=== PATIENT | female | born 1965 | race Caucasian/White ===

== ENCOUNTER 2022-01-22 21:19 | Emergency (ER) | payer BC ==
[2022-01-22] MEDS ORDERED: Loperamide 2 MG Cap PO ONE (21:41)
[2022-01-22] MEDS ORDERED: Sodium Chloride 0.9% 10 ML Syringe FLUSH PRN (21:41)
[2022-01-22] MEDS ORDERED: Sodium Chloride 0.9% 1,000 ML IV ONE (21:46)
[2022-01-22 22:11] LABS: ESTIMATED GFR 86 mL/min (>60)
[2022-01-22 22:21] LABS: CORONAVIRUS COVID-19 NAA NEGATIVE (NEGATIVE)
[2022-01-23] MEDS ORDERED: Ondansetron 4 MG/2 ML SDV IVPUSH ONE (00:01)
== END 2022-01-23 00:21 | disposition home or self-care (01) ==
LOC: JD.ED 21:19
DX: R55 Syncope and collapse (principal); R19.7 Diarrhea, unspecified; E11.9 Type 2 diabetes mellitus without complications; Z86.16 Personal history of COVID-19; Z88.5 Allergy status to narcotic agent; Z79.84 Long term (current) use of oral hypoglycemic drugs; Z79.899 Other long term (current) drug therapy; Z20.822 Contact with and (suspected) exposure to COVID-19
CPT/HCPCS: 0240U; 36415; 80053; 83735; 85025; 86140; 96361; 96374; 99284; A9270; J2405; J3490; J7030

== ENCOUNTER 2023-03-26 06:00 | Day surgery (SDC) | payer BC ==
[~2023-03-26 06:00] MED LIST: Lactated Ringers 1,000 ML IV SCH; Sodium Chloride 0.9% 10 ML Syringe FLUSH PRN; Sodium Chloride 0.9% 10 ML Syringe FLUSH SCH
[2023-03-26] MEDS ORDERED: Bupivacaine 0.25% 10 ML SDV ONE (06:40)
[2023-03-26] MEDS ORDERED: Lidocaine 1% 10 ML MDV ONE (06:40)
[2023-03-26] MEDS ORDERED: Lidocaine 1% 6 ML ONE (06:43)
[2023-03-26] MEDS ORDERED: Propofol 200 MG/20 ML SDV ONE ×2 (06:43→06:45)
[2023-03-26] MEDS ORDERED: fentaNYL 100 MCG/2 ML SDV ONE (06:43)
[2023-03-26] MEDS ORDERED: Midazolam 1 MG/ML 2 ML SDV ONE (06:44)
[2023-03-26] MEDS ORDERED: Ondansetron 4 MG/2 ML SDV ONE (07:19)
== END 2023-03-26 08:25 | disposition home or self-care (01) ==
LOC: JD.SDS 06:00
PROVIDERS: ATTEND Orthopaedic Surgery
DX: M65.322 Trigger finger, left index finger (principal); M65.842 Other synovitis and tenosynovitis, left hand; E11.9 Type 2 diabetes mellitus without complications; F41.9 Anxiety disorder, unspecified; F32.A Depression, unspecified; E78.00 Pure hypercholesterolemia, unspecified; Z87.891 Personal history of nicotine dependence; Z79.84 Long term (current) use of oral hypoglycemic drugs; Z79.899 Other long term (current) drug therapy
CPT/HCPCS: 26055; J2250; J2405; J2704; J3010; J3490; J7120; 01810

== ENCOUNTER 2023-05-23 08:15 | Day surgery (SDC) | payer BC ==
[~2023-05-23 08:15] MED LIST changes: -Lactated Ringers 1,000 ML IV SCH
[2023-05-23] MEDS: Lactated Ringers 1,000 ML IV SCH (08:53)
[2023-05-23] MEDS ORDERED: fentaNYL 100 MCG/2 ML SDV ONE (09:13)
[2023-05-23] MEDS ORDERED: Midazolam 1 MG/ML 2 ML SDV ONE (09:13)
[2023-05-23] MEDS ORDERED: Propofol 200 MG/20 ML SDV ONE ×2 (09:13→10:30)
[2023-05-23] MEDS ORDERED: Lidocaine 1% 6 ML ONE (09:19)
[2023-05-23] MEDS ORDERED: Ondansetron 4 MG/2 ML SDV ONE (10:23)
[2023-05-23] MEDS: Bupivacaine 0.25% 10 ML SDV ONE (10:25)
[2023-05-23] MEDS: Lidocaine 1% 10 ML MDV ONE (10:25)
[2023-05-23] MEDS ORDERED: Lactated Ringers 1,000 ML ONE (10:31)
== END 2023-05-23 11:35 | disposition home or self-care (01) ==
LOC: JD.SDS 08:15
PROVIDERS: ATTEND Orthopaedic Surgery
DX: M65.842 Other synovitis and tenosynovitis, left hand (principal); E11.9 Type 2 diabetes mellitus without complications; F41.9 Anxiety disorder, unspecified; E78.00 Pure hypercholesterolemia, unspecified; E66.9 Obesity, unspecified; Z68.33 Body mass index [BMI] 33.0-33.9, adult; F17.290 Nicotine dependence, other tobacco product, uncomplicated; Z79.899 Other long term (current) drug therapy; Z88.5 Allergy status to narcotic agent
CPT/HCPCS: 26055; J2250; J2405; J2704; J3010; J3490; J7120; 01810

== ENCOUNTER 2024-07-24 06:43 | Day surgery (SDC) | payer BC ==
[2024-07-24] MEDS ORDERED: Propofol 200 MG/20 ML SDV ONE (06:53)
[2024-07-24] MEDS ORDERED: Lidocaine 1% 4 ML ONE (06:53)
[2024-07-24] MEDS: Lactated Ringers 1,000 ML IV SCH (07:05)
[2024-07-24] MEDS ORDERED: Sodium Chloride 0.9% 10 ML Syringe FLUSH PRN (08:00)
[2024-07-24] MEDS ORDERED: Sodium Chloride 0.9% 10 ML Syringe FLUSH SCH (09:00)
== END 2024-07-24 08:40 | disposition home or self-care (01) ==
LOC: JD.SDS 06:43
PROVIDERS: ATTEND Surgery
DX: Z12.11 Encounter for screening for malignant neoplasm of colon (principal); K64.8 Other hemorrhoids; F41.9 Anxiety disorder, unspecified; F32.A Depression, unspecified; E11.9 Type 2 diabetes mellitus without complications; E03.9 Hypothyroidism, unspecified; E78.00 Pure hypercholesterolemia, unspecified; Z79.890 Hormone replacement therapy; Z79.899 Other long term (current) drug therapy
CPT/HCPCS: 45378; J2003; J2704; J7120